=== PATIENT | female | born 2000 | race African-American/Black ===

== ENCOUNTER 2023-01-08 23:00 | Emergency (ER) | payer OTHER ==
[2023-01-08 23:21] VITALS: BP 116/74; O2SAT 99
--- NOTE | 2023-01-09 00:40 | ED Physician Documentation ---
History of Present Illness - Stated complaint Stated Complaint: - Chief complaint Chief Complaint: General - History obtained from History obtained from: Patient - Additonal information Additional information: 22-year-old female presents for IUD check. Patient had IUD placed 3 weeks ago, tonight during intercourse her partner thought that they could feel plastic and they wanted to check to make sure that the IUD was in place. Patient has had intermittent cramping and spotting since the IUD has been placed. Review of Systems Constitutional: denies: Fever, Chills : reports: Control (IUD), Other (pelvic cramping, spotting). denies: Dysuria, Frequency, Hesitancy, Unable to Void, Missed period PD PAST MEDICAL HISTORY - Present Medications Home Medications: Ambulatory Orders Medication Instructions Recorded Confirmed No Known Home Medications 01/09/23 01/09/23 - Allergies Allergies/Adverse Reactions: Allergies Allergy/AdvReac Type Severity Reaction Status Date / Time No Known Drug Allergies Allergy Verified 01/08/23 23:07 PD ED PE NORMAL - Vitals Vital signs reviewed: Yes - General General: Alert and oriented X 3, No acute distress, Well developed/nourished - HEENT HEENT: Atraumatic - Cardiac Cardiac: RRR, Strong equal pulses - Respiratory Respiratory: No respiratory distress, Clear bilaterally - Abdomen Abdomen: Soft, Non tender, Non distended - Female Female : 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 No active bleeding, no concerning lesions. IUD strings appear in correct position) - Derm Derm: Normal color, Warm and dry, No rash - Extremities Extremities: No deformity, No tenderness to palpate, Normal ROM s pain, No edema - Neuro Neuro: Alert and oriented X 3, director energy 2-12 intact, No motor deficit, Normal speech Results - Vitals Vitals: Vital Signs - 24 hr 01/08/23 23:07 Temperature 36.7 C Heart Rate 76 Respiratory 16 Rate Blood Pressure 116/74 O2 Saturation 99 Oxygen O2 Source Room air PD Medical Decision Making - ED course Complexity details: considered differential, d/w patient ED course: IUD check. Appears to be in correct position. Patient counseled that it can be normal to experience intermittent cramping and spotting for several months post IUD placement. Counseled to follow up with OBGYN if she continues to experience symptoms. Departure - Departure Disposition: Home, Self Care Clinical Impression: IUD check up Condition: Stable Instructions: Control IUD Forms: PCP List Discharge Date/Time: 01/09/23 00:45
== END 2023-01-09 00:45 | disposition home or self-care (01) ==
LOC: ED 23:00
DX: Z30.431 Encounter for routine checking of intrauterine contraceptive device (principal)
CPT/HCPCS: 99281; 99282

== ENCOUNTER 2023-03-20 17:47 | Emergency (ER) | payer OTHER ==
[2023-03-20 17:59] VITALS: BP 118/74; O2SAT 100
--- NOTE | 2023-03-20 18:07 | ED Physician Documentation ---
PD HPI LOWER EXT INJURY - Stated complaint Stated Complaint: LT FOOT PX - Chief complaint Chief Complaint: Ext Problem - History obtained from History obtained from: Patient - History of Present Illness PD HPI LOW EXT INJURY LOCATION: Left - Additional information Additional information: Healthy 23-year-old female presents with left foot pain. She noted today when she woke up. Pain is in the middle bottom part of the foot, denies any injuries, no excess activity, no shoes, she notes mild swelling no erythema. She has not attempted any medication or other treatment for this including ibuprofen Tylenol and ice pack. No prior history of same. PD PAST MEDICAL HISTORY - Past Medical History Past Medical History: No Cardiovascular: None Respiratory: None Neuro: None Endocrine/Autoimmune: None GI: None TREE EXPERT: None : None HEENT: None Psych: None Musculoskeletal: None Derm: None - Past Surgical History Past Surgical History: No - Present Medications Home Medications: Ambulatory Orders Medication Instructions Recorded Confirmed No Known Home Medications 01/09/23 03/20/23 - Allergies Allergies/Adverse Reactions: Allergies Allergy/AdvReac Type Severity Reaction Status Date / Time No Known Drug Allergies Allergy Verified 03/20/23 17:51 - Social History Does the pt smoke?: No Smoking Status: Never smoker Does the pt drink ETOH?: Yes Does the pt have substance abuse?: No - Immunizations Immunizations are current?: Yes PD ED PE NORMAL - Vitals Vital signs reviewed: Yes - General General: Alert and oriented X 3, No acute distress, Well developed/nourished - Derm Derm: Normal color, Warm and dry, No rash - Extremities Extremities: No deformity, Normal ROM s pain, No calf tenderness / cord, Other (d Normal range of motion of foot, 2+ dp/pt, cap refill brisk) Results - Vitals Vitals: Vital Signs - 24 hr 03/20/23 17:53 Temperature 36 C L Heart Rate 84 Respiratory 16 Rate Blood Pressure 118/74 O2 Saturation 100 Oxygen O2 Source Room air PD Medical Decision Making - ED course Complexity details: considered differential, d/w patient ED course: 23-year-old female presents with atraumatic left foot pain over the arch and plantar aspect of the foot. Pain is fairly focal, there is maybe trace swelling, no erythema no signs of infection. Patient did not sustain any injuries, no punctures, and has no signs of infection. Pain is worse with flexion extension of foot and I suspect that she has a planter fasciitis. I have advised supportive measures including cool compress, ibuprofen and Tylenol as needed, rest. Recommended foot exercises and well fitting shoes. The patient should follow-up with her PCP for this issue, if no improvement may need to see podiatry. Departure - Departure Disposition: 01 Home, Self Care Clinical Impression: Foot pain, left, Plantar fasciitis of left foot Condition: Good Instructions: Plantar Fasciitis, Ankle Dorsiflexion Plantarflexion, Toe Extension, ED RICE Forms: PCP List
== END 2023-03-20 18:18 | disposition home or self-care (01) ==
LOC: ED 17:47
DX: M72.2 Plantar fascial fibromatosis (principal)
CPT/HCPCS: 99281; 99282

== ENCOUNTER 2023-11-25 15:58 | Outpatient (CLI) | payer OTHER ==
--- NOTE | 2023-11-28 09:49 | MRI Report ---
Foot LT WO CLINICAL HISTORY: 23 years of age, Female, PAIN IN L FOOT. COMPARISON: None Technique: Multisequence, multiplanar MRI of the left foot was performed without contrast. FINDINGS: Tendons: Flexor and extensor tendons are intact with normal course, caliber and signal. Muscles: 1.6 x 4.6 cm (transverse by length) T2 hyperintense area involving the muscles plantar to th e third metatarsal diaphysis, extending superiorly between the third and fourth metatarsal diaphysis. There is another component extending medially, plantar to the second metatarsal diaphysis, measuring 1.1 x 2.6 cm. There is a mild associated fatty infiltration. Ligaments: Lisfranc and radial collateral ligaments are intact. Interosseous spaces: Mild first intermetatarsal bursitis. Plantar Fascia: Normal. Osseous and Cartilaginous: Normal bone marrow signal intensity. Cartilage is normal in appearance. Miscellaneous: IMPRESSION: 4.6 cm and 2.6 cm T2 hyperintense area involving the musculature predominantly plantar to the second and third metatarsal diaphysis, with mild associated muscle fatty infiltration. Overall, finding is c oncerning for infiltrating mass. Recommend further evaluation with MR foot with intravenous contrast. Reviewed by: Ellen Vela MD on 11/28/2023 9:48 AM PDT Approved by: Ellen Vela MD on 11/28/2023 9:48 AM PDT Station ID: [id number]
== END 2023-11-25 15:59 | disposition home or self-care (01) ==
LOC: DI 15:58
DX: M79.672 Pain in left foot (principal); R93.6 Abnormal findings on diagnostic imaging of limbs; R93.89 Abnormal findings on diagnostic imaging of other specified body structures

== ENCOUNTER 2023-12-23 15:36 | Outpatient (CLI) | payer OTHER ==
[~2023-12-23 15:36] MED LIST: GADOTERATE MEGLUMINE 10 MMOL/20 ML VIAL ONE
[2023-12-23] MEDS: GADOTERATE MEGLUMINE 10 MMOL/20 ML VIAL IVP ONE (16:39)
--- NOTE | 2023-12-26 09:04 | MRI Report ---
PROCEDURE: Lower Extremity Left W/ INDICATIONS: LT FOOT PAIN, INFILTRATING MASS TECHNIQUE: T1 pre and post gadolinium images were obtained. COMPARISON: Prior examination of the 11/25/2023 reviewed. FINDINGS: MRI of the left forefoot shows a multiseptated contrast-enhancing mass lesion predominantly within th e musculature inferior to the second and third metatarsals. Given the imaging findings at this may re present a large multiseptated ganglion or large vascular hemangioma however given its proximity to mu ltiple joints the synovial cell sarcoma is not excluded and I would recommend biopsy to correlate wit h tissue histology. Marrow signal visualized bones appears within normal limits. No significant degenerative changes are present. Visualized tendons appear intact. No significant joint effusion is identified. IMPRESSION: 4.7 x 3.1 x 1.4 cm multiseptated contrast enhancing mass lesion primarily inferior to the second and third metatarsals. See above differential. Given that synovial cell sarcoma is within the differentia l I would recommend biopsy to correlate with tissue histology. Reviewed by: Philip Rico MD on 12/26/2023 9:03 AM PDT Approved by: Philip Rico MD on 12/26/2023 9:03 AM PDT Station ID: [id number]
== END 2023-12-23 15:37 | disposition home or self-care (01) ==
LOC: DI 15:36
PROVIDERS: ATTEND Student in an Organized Health Care Education/Training Program
DX: R22.42 Localized swelling, mass and lump, left lower limb (principal); M79.672 Pain in left foot
CPT/HCPCS: 73719; A9575